=== PATIENT | male | born 1965 | race Caucasian/White ===

== ENCOUNTER 2018-12-02 17:10 | Emergency (ER) | payer OTHER ==
[~2018-12-02] VITALS: Ht 195.6 cm; Wt 99.8 kg
[~2018-12-02 17:10] MED LIST: NOHOMEMEDICATIONS; PERCOCET 5-3251 EACH PO; SENNA-DOCUSATE1 EACH PO
[2018-12-02 18:09] LABS: ABSOLUTE NEUTROPHILS 2.3 thou/uL (1.4-8.2); BASOPHILS 0.9 % (0.0-2.0); EOSINOPHILS 1.4 % (0.0-3.0); HEMATOCRIT 39.4 % (42.0-52.0); HEMOGLOBIN 13.7 gm/dL (14.0-18.0); LYMPHOCYTES 35.1 % (24.0-44.0); MCH 34.3 pg (26.0-34.0); MCHC 34.9 g/dL (28.0-37.0); MCV 98.3 fL (80.0-100.0); MONOCYTES 5.8 % (1.0-8.0); PLATELET COUNT 192 thou/uL (150-400); POLYS 56.8 % (36.0-66.0); RDW 15.5 % (10.5-14.5)
[2018-12-02 18:19] LABS: CALCIUM 8.5 mg/dL (8.5-10.1); POTASSIUM 3.6 mmol/L (3.5-5.1)
[2018-12-02] MEDS ORDERED: ZANAFLEX4 MG PO (20:41)
[2018-12-02] MEDS ORDERED: PREDNISONE 20 M20 MG PO (20:41)
[2018-12-02 20:45] VITALS: BP 131/93
[2018-12-02] MEDS ORDERED: PERCOCET 5-3251 EACH PO (20:46)
== END 2018-12-02 21:05 | disposition home or self-care (01) ==
LOC: ER 17:10
PROVIDERS: Nurse Practitioner
DX: M25.552 Pain in left hip (principal); R22.42 Localized swelling, mass and lump, left lower limb; Z96.643 Presence of artificial hip joint, bilateral; Z88.6 Allergy status to analgesic agent; Z88.8 Allergy status to other drugs, medicaments and biological substances; W18.39XA Other fall on same level, initial encounter; Y93.89 Activity, other specified; Y92.89 Other specified places as the place of occurrence of the external cause; Y99.8 Other external cause status

== ENCOUNTER 2019-03-19 17:07 | Emergency (ER) | payer OTHER ==
[~2019-03-19] VITALS: Ht 195.6 cm; Wt 99.8 kg
[~2019-03-19 17:07] MED LIST changes: +PREDNISONE 20 M20 MG PO; +ZANAFLEX4 MG PO
[2019-03-19] MEDS ORDERED: OXYCODONE HCL5 MG PO (19:02)
[2019-03-19] MEDS ORDERED: MOBIC15 MG PO (19:02)
[2019-03-19] MEDS ORDERED: CYCLOBENZAPRINE5 MG PO (19:02)
[2019-03-19] MEDS ORDERED: DILTIAZEM 24HR240 M1 PO (19:06)
[2019-03-19] MEDS ORDERED: REMERON 30 MG T30 MG PO (19:07)
[2019-03-19 19:23] VITALS: BP 119/86
== END 2019-03-19 19:23 | disposition home or self-care (01) ==
LOC: ER 17:07
DX: S76.012A Strain of muscle, fascia and tendon of left hip, initial encounter (principal); Z96.643 Presence of artificial hip joint, bilateral; Z88.6 Allergy status to analgesic agent; Z88.8 Allergy status to other drugs, medicaments and biological substances; W01.0XXA Fall on same level from slipping, tripping and stumbling without subsequent striking against object, initial encounter; Y93.89 Activity, other specified; Y92.89 Other specified places as the place of occurrence of the external cause; Y99.8 Other external cause status